=== PATIENT | male | born 1935 | race Two or more races ===

== ENCOUNTER 2017-01-06 00:01 | Emergency (ER) | payer MEDICARE ==
[~2017-01-06] VITALS: Ht 175.3 cm; Wt 72.6 kg
[2017-01-06] MEDS ORDERED: ONDANSETRON HCL 4 MG/2 ML VIAL ONE (00:37)
[2017-01-06] MEDS ORDERED: ONDANSETRON HCL 4 MG/2 ML VIAL IV ONE (00:45)
[2017-01-06 00:51] LABS: DEFINITIVE SEE PRINTOUT; Hematocrit 43.6 % (41.0-53.0); Hemoglobin 14.6 g/dL (13.5-17.5); Mean Corpuscular Hemoglobin 30.5 pg (28.0-32.0); Mean Corpuscular Hgb Conc. 33.4 g/dL (32.0-36.0); Mean Corpuscular Volume 91.3 fL (80.0-100.0); Mean Platelet Volume 7.9 fL (7.4-10.4); Platelet Count (auto) 219 10^3/uL (140-450); SUSPECT SEE PRINTOUT; White Blood Cell 13.1 10^3/uL (4.4-10.8)
[2017-01-06 00:59] LABS: Metamyelocytes % 0; Myelocytes % 0; Promyelocytes % 0; Reactive Lymphocytes 0
[2017-01-06 01:06] LABS: INR 0.92 (0.9-1.15); Partial Thromboplastin Time 25.1 sec (22.64-33.71)
[2017-01-06 01:11] LABS: Albumin 3.9 g/dL (3.4-5.0); Anion Gap 12 (5-15); Aspartate Aminotransferase 18 U/L (15-37); BUN/Creatinine Ratio 13.7; Blood Urea Nitrogen 16 mg/dL (7-18); Calcium 8.7 mg/dL (8.5-10.1); Carbon Dioxide 24 mmol/L (21-32); Chloride 102 mmol/L (98-107); GFR African American 77 mL/min; GFR Non-African American 64 mL/min; Glucose 149 mg/dL (74-106); Magnesium 2.2 mg/dL (1.6-2.6); Potassium 3.7 mmol/L (3.5-5.1); Sodium 138 mmol/L (136-145)
[2017-01-06 01:15] LABS: Alkaline Phosphatase 86 U/L (45-117); Bilirubin, Total 0.8 mg/dL (0.2-1.0); Total Protein 8.2 g/dL (6.4-8.2)
[2017-01-06 01:36] LABS: Hypersegmented Neutrophils Present; Platelet Estimate Adequate; RBC Morphology Normal
[2017-01-06] MEDS ORDERED: SODIUM CHLORIDE 0.9% 1,000 ML IV ONE (03:30)
[2017-01-06] MEDS ORDERED: cefTRIAXone 1GM/50ML D5W 50 ML IV ONE (03:30)
[2017-01-06] MEDS ORDERED: metroNIDAZOLE 500MG/100ML 100 ML IV ONE (03:30)
[2017-01-06 04:19] LABS: Urine RBC None Seen /hpf (0 - 3)
[2017-01-06 04:42] LABS: Urine Bilirubin Negative (Negative); Urine Blood Negative /uL (Negative); Urine Color Yellow (Yellow); Urine Glucose Normal (Normal); Urine Mucus FEW (None Seen); Urine Nitrite Negative (Negative)
[2017-01-06 04:45] LABS: Urine Ketone 1+ (Negative)
[2017-01-06 05:58] VITALS: BP 141/59
== END 2017-01-06 06:48 | disposition home or self-care (01) ==
LOC: ER 00:01
DX: K52.9 Noninfective gastroenteritis and colitis, unspecified (principal); E07.9 Disorder of thyroid, unspecified
CPT/HCPCS: 36415; 74176; 80053; 81001; 83690; 83735; 84484; 85007; 85027; 85610; 85730; 93005; 96365; 96366; 96368; 96375; 99285; J0696; J2405; J3490; J7030

== ENCOUNTER 2019-02-15 18:26 | Emergency (ER) | payer SELFPAY ==
[~2019-02-15] VITALS: Ht 177.8 cm; Wt 86.2 kg
[2019-02-15] MEDS ORDERED: traMADol HCL 50 MG TAB PO ONE (20:30)
[2019-02-15 20:49] VITALS: BP 138/79
== END 2019-02-15 20:51 | disposition home or self-care (01) ==
LOC: ER 18:28
DX: S16.1XXA Strain of muscle, fascia and tendon at neck level, initial encounter (principal); S09.90XA Unspecified injury of head, initial encounter; E78.5 Hyperlipidemia, unspecified; I10 Essential (primary) hypertension; W19.XXXA Unspecified fall, initial encounter; Y93.89 Activity, other specified; Y99.8 Other external cause status; Y92.89 Other specified places as the place of occurrence of the external cause
CPT/HCPCS: 70450; 72040; 72100; 94761

== ENCOUNTER 2019-08-20 11:53 | Emergency (ER) | payer MEDICARE ==
[~2019-08-20] VITALS: Ht 177.8 cm; Wt 86.2 kg
[2019-08-20] MEDS ORDERED: ASPirin 81 mg TAB PO ONE (12:45)
[2019-08-20 12:55] LABS: Basophils # (auto) 0 uL; Basophils % (auto) 0.4 % (0.0-2.0); Eosinophils # (auto) 0 uL; Eosinophils % (auto) 0.8 % (0.0-7.0); Hematocrit 38.4 % (41.0-53.0); Hemoglobin 12.9 g/dL (13.5-17.5); Lymphocytes # (auto) 1.4 uL; Mean Corpuscular Hgb Conc. 33.5 g/dL (32.0-36.0); Mean Corpuscular Volume 92.5 fL (80.0-100.0); Monocytes # (auto) 0.4 uL; Neutrophils % (auto) 60.8 % (37.0-80.0); Platelet Count (auto) 193 10^3/uL (140-450); Red Blood Cells 4.15 10^6/uL (4.5-5.90); Red Cell Distribution Width 13.4 % (11.8-14.3); White Blood Cell 4.8 10^3/uL (4.4-10.8)
[2019-08-20 13:20] LABS: Albumin 3.3 g/dL (3.4-5.0); Anion Gap 5 (5-15); Blood Urea Nitrogen 14 mg/dL (7-18); Calcium 8.1 mg/dL (8.5-10.1); Carbon Dioxide 26 mmol/L (21-32); Chloride 107 mmol/L (98-107); Glucose 139 mg/dL (74-106); Magnesium 2.6 mg/dL (1.6-2.6); Potassium 4.1 mmol/L (3.5-5.1); Sodium 138 mmol/L (136-145)
[2019-08-20 13:26] LABS: Alanine Aminotransferase 15 U/L (16-61); Alkaline Phosphatase 100 U/L (45-117); Aspartate Aminotransferase 18 U/L (15-37); BUN/Creatinine Ratio 17.3; Bilirubin, Total 1.2 mg/dL (0.2-1.0); GFR African American 117 mL/min; GFR Non-African American 97 mL/min; Total Protein 7.4 g/dL (6.4-8.2)
[2019-08-20 15:54] VITALS: BP 118/85
== END 2019-08-20 15:56 | disposition home or self-care (01) ==
LOC: ER 11:53
DX: R00.2 Palpitations (principal); R07.9 Chest pain, unspecified; M54.2 Cervicalgia; E78.5 Hyperlipidemia, unspecified; I10 Essential (primary) hypertension; Z86.73 Personal history of transient ischemic attack (TIA), and cerebral infarction without residual deficits
CPT/HCPCS: 36415; 71045; 80053; 83735; 83880; 84484; 85025; 93005

== ENCOUNTER 2020-08-01 19:19 | Emergency (ER) | payer MEDICARE ==
[~2020-08-01] VITALS: Ht 175.3 cm; Wt 72.6 kg
[2020-08-01 20:05] LABS: Basophils # (auto) 0.1 10 ^3/uL (0-0.2); Basophils % (auto) 1.3 % (0.0-2.0); Eosinophils # (auto) 0.1 10 ^3/uL (0-0.8); Eosinophils % (auto) 2.3 % (0.0-7.0); Hematocrit 33.4 % (41.0-53.0); Hemoglobin 11.3 g/dL (13.5-17.5); Lymphocytes # (auto) 1.3 10 ^3/uL (0.4-5.4); Lymphocytes % (auto) 28.9 % (10.0-50.0); Mean Corpuscular Hemoglobin 32.2 pg (28.0-32.0); Mean Corpuscular Hgb Conc. 33.9 g/dL (32.0-36.0); Mean Corpuscular Volume 94.9 fL (80.0-100.0); Monocytes # (auto) 0.5 10 ^3/uL (0-1.3); Monocytes % (auto) 12.2 % (0.0-12.0); Neutrophils # (auto) 2.4 10 ^3/uL (1.6-8.6); Neutrophils % (auto) 55.3 % (37.0-80.0); Nucleated Red Blood Cells % 0.1 %; Platelet Count (auto) 266 10^3/uL (140-450); Red Blood Cells 3.52 10^6/uL (4.5-5.90); Red Cell Distribution Width 15.5 % (11.8-14.3); White Blood Cell 4.4 10^3/uL (4.4-10.8)
[2020-08-01 20:33] LABS: Albumin 2.9 g/dL (3.4-5.0); Calcium 8.1 mg/dL (8.5-10.1); Potassium 4.1 mmol/L (3.5-5.1)
[2020-08-01 20:35] LABS: BUN/Creatinine Ratio 9.2
[2020-08-01 20:38] LABS: Bilirubin, Total 0.7 mg/dL (0.2-1.0); Total Protein 6.6 g/dL (6.4-8.2)
[2020-08-01 21:29] LABS: INR 0.99 (0.9-1.15); Partial Thromboplastin Time 29.9 sec (23.0-31.2)
[2020-08-02 00:16] VITALS: BP 135/51
== END 2020-08-02 01:07 | disposition home or self-care (01) ==
LOC: ER 19:19 → EDBD 19:19 → ER 08-02 01:07
DX: U07.1 COVID-19 (principal); R53.83 Other fatigue; E78.5 Hyperlipidemia, unspecified; I10 Essential (primary) hypertension; Z86.73 Personal history of transient ischemic attack (TIA), and cerebral infarction without residual deficits
CPT/HCPCS: 36415; 71045; 80053; 83880; 84484; 85025; 85379; 85610; 85730; 87426; 93005; 99285; C9803; U0003